=== PATIENT | female | born 1955 | race Caucasian/White ===

== ENCOUNTER 2018-11-28 00:29 | Outpatient (CLI) | payer OTHER, SELFPAY ==
--- NOTE | 2018-11-28 13:14 | DI.MAMMO_ITS ---
SYMPTOMS/DIAGNOSIS: H/O RIGHT-SIDED BREAST CA AND RIGHT MASTECTOMY, SCREENING, Z12.31 MAMMOGRAM: Mammograms were interpreted according to the usual protocol including computer analysis with CAD system, tomosynthesis and C view imaging. The patient is status post right mastectomy. Moderate radiodensity. There is no dominant mass. There are no suspicious calcifications and there has been no significant interval change when compared with the previous images of 01/02/2018. SUMMARY: No evidence of malignancy, category 1. Yearly screening mammography is recommended. Breast density category B. MQSA ASSESSMENT OF FINDINGS: Negative. Category 1. Patient will receive a letter notifying them of these results. BI-RADS category B. There are scattered areas of fibroglandular density.
== END 2018-11-28 00:49 ==
PROVIDERS: PCP Family Medicine; Visit Provider Obstetrics & Gynecology Gynecology
DX: Z12.31 Encounter for screening mammogram for malignant neoplasm of breast (principal); Z85.3 Personal history of malignant neoplasm of breast; Z90.11 Acquired absence of right breast and nipple
CPT/HCPCS: 77063; 77067

== ENCOUNTER 2019-03-05 15:49 | Outpatient (REF) | payer OTHER, SELFPAY ==
[2019-03-05 21:59] LABS: HCT 43.2 % (36.0-46.0); HGB 14.4 g/dL (12.0-15.5); Mean Corp. HGB Concentration 33.3 g/dL (32.0-36.0); Mean Corpuscular Hemoglobin 30.3 pg (27.0-33.0); Mean Corpuscular Volume 90.8 fL (80-95); Mean Platelet Volume 10.8 fL (8.0-11.0); Platelet Count 208 x1000/uL (130-400); RBC 4.76 m/cumm (4.00-5.20); RBC Distribution Width 13.9 % (11.7-14.6); White Blood Cell Count 4.95 k/cumm (4.4-10.8)
[2019-03-05 22:36] LABS: ALT 28 U/L (12-78); AST 21 U/L (15-37); Albumin 3.8 g/dL (3.4-5.0); Alkaline Phosphatase 90 U/L (46-116); Anion Gap 8.2 mmol/L (3-11); BUN 18 mg/dL (7-18); Bilirubin, Total 0.4 mg/dL (0.2-1.0); CO2 28.8 mmol/L (21.0-32.0); CREATININE 0.84 mg/dL (0.55-1.02); Calcium 8.8 mg/dL (8.5-10.1); Chloride 104 mmol/L (98-107); Cholesterol 175 mg/dL (50-200); Glucose 101 mg/dL (70-100); HDL Cholesterol 49 mg/dL (40-60); LDL CHOLESTEROL 112 mg/dL (<100); Sodium 141 mmol/L (136-145); Triglyceride 144 mg/dL (30-150)
== END 2019-03-05 16:09 ==
LOC: NCHCN 15:49
PROVIDERS: PCP Family Medicine; Visit Provider Family Medicine
DX: Z00.00 Encounter for general adult medical examination without abnormal findings (principal); Z13.220 Encounter for screening for lipoid disorders; Z13.0 Encounter for screening for diseases of the blood and blood-forming organs and certain disorders involving the immune mechanism; Z13.228 Encounter for screening for other metabolic disorders
CPT/HCPCS: 80053; 80061; 83721; 85027

== ENCOUNTER 2019-09-05 07:52 | Day surgery (SDC) | payer OTHER, SELFPAY ==
[2019-09-05 08:19] VITALS: BP 109/66; PULSE 59; RESP 16; TEMP 36.4; O2SAT 98
--- NOTE | 2019-09-05 09:13 | PDOC.DSDIS_ITS ---
Discharge Plan Disposition Patient Disposition: HOME Condition: Good Discharge Details Reason For Visit: Colonoscopy Attending Provider: Veronica Zhou Primary Care Provider: Renetta Gale Home Meds and New Rx's Prescriptions: Continued zinc acetate 25 mg (zinc) capsule 25 mg PO DAILY PRNRF: 0 magnesium oxide 400 mg magnesium capsule 400 mg PO DAILY RF: 0 fish oil-dha-epa 1 EACH capsule 1 ea PO DAILY RF: 0 calcium phosphate-vitamin D3 [Citracal + D3 (calcium phos)] 250 mg calcium- 500 unit Tablet,Chewable 1 tab PO DAILY RF: 0 Discontinued polyethylene glycol 3350 17 gram/dose powder 238 g PO ONCE Qty: 238 RF: 0 bisacodyl [Dulcolax (bisacodyl)] 5 mg tablet,delayed release (DR/EC) 5 mg PO ONCE Qty: 4 RF: 0 Discharge Instructions Additional Instructions: Findings: Your colonoscopy was normal. Follow up: Plan for routine screening in 10 years or sooner if symptoms occur. Please call if you develop: fevers >101.5 Nausea or Vomiting Abdominal pain that is not transient DAY SURGERY UNIT POST COLONOSCOPY INSTRUCTIONS 1. Because there will be medication in your system for the next 24 hours, you may feel a little sleepy. Your coordination will be affected. Therefore: a. Do not drive or operate dangerous equipment for 24 hours. b. Do not drink alcohol beverages for 24 hours (not even beer). c. Plan to go home and rest for the day. 2. Generally there are no restrictions on your activity after a day or so has gone by, but you may feel a bit fatigued for a few days. 3 After you arrive home you may have a light meal and return to a normal diet as you can tolerate it without feeling sick to your stomach. 4. After surgery, you may feel pain or discomfort. This should be only transien t, but if it persists please contact your doctor. 5. If there are any questions regarding the findings of your procedure, please feel free to contact your doctor. 6. If you are unable to contact your doctor with a problem, contact the hospital at [phone]. 7. Continue all your regular medications unless directed otherwise. I understand the above instructions and have no questions. Signature of Patient or Responsible Adult Escort Date/Time Name of Responsible Adult Escort Signature of Nurse Date/Time Activity:: Activity as Tolerated Diet:: As Tolerated Discharge Orders Discharge Orders: Discharge Order (Routine); Ordered 09/05/19 Ordered By: Veronica Zhou DS: Diagnosis Discharge Diagnosis (1) Normal colonoscopy: Status: Acute
[2019-09-05] MEDS: Lactated Ringers 1,000 ML 80 ML IV (09:23)
--- NOTE | 2019-09-05 10:17 | COLE_ITS ---
DATE OF PROCEDURE: September 05, 2019 PREOPERATIVE DIAGNOSIS: Screening. POSTOPERATIVE DIAGNOSIS: Normal colon. PROCEDURE: Colonoscopy. SURGEON: Veronica Zhou M.D. ANESTHESIA: General. INDICATIONS: This is a 63-year-old woman whose last colonoscopy was over ten years ago. She is asym ptomatic and has no family history of colon cancer. PROCEDURE: She was placed in the left Fine position. Propofol was titrated to sedation. Digital re ctal examination revealed no abnormalities. The scope was advanced to the cecum without difficulty. Her prep was excellent. The ileocecal valve and appendiceal orifice were clearly identified. The s cope was slowly withdrawn with no abnormalities seen within the ascending, transverse, descending, si gmoid colon or rectum, including on retroflex view. She tolerated the procedure well and was stable to recovery. She will need a follow-up screening again in ten years or sooner if symptoms indicate. cc: Renetta Gale M.D.
[2019-09-05 10:27] VITALS: BP 113/69; PULSE 68; RESP 16; TEMP 36.4; O2SAT 99
== END 2019-09-05 11:40 | disposition home or self-care (01) ==
PROVIDERS: PCP Family Medicine; Visit Provider Surgery
PROC: 0DJD8ZZ Inspection of Lower Intestinal Tract, Via Natural or Artificial Opening Endoscopic (ICD-10-PCS; CPT 45378; principal; 2019-09-05 09:30)
DX: Z12.11 Encounter for screening for malignant neoplasm of colon (principal)
CPT/HCPCS: 45378

== ENCOUNTER 2020-01-13 00:17 | Outpatient (CLI) | payer OTHER, SELFPAY ==
--- NOTE | 2020-01-13 13:45 | DI.MAMMO_ITS ---
EXAM: MG MAMMO SCREENING 60 MIN DUR CLINICAL HISTORY: H/O BREAST CA, Z85.3, S/P RT MASTECTOMY, SCREENING OF LT SIDE, Z12.31 TECHNIQUE: Bilateral full field digital CC and MLO mammographic images were obtained with 3D tomosyn thesis and utilizing computer aided detection (CAD). COMPARISON: Available for comparison. FINDINGS: Masses/Architectural Distortion: The patient is status post right mastectomy. No suspicious masses a re present in the left breast. Microcalcifications: No suspicious pleomorphic-type are seen. Skin Thickening/Nipple Retraction: None. IMPRESSION: 1. No significant interval change with no specific features of malignancy noted. 2. Unless there is more urgent need, screening mammography is recommended, as per [place] [employer] guidelines. BI-RADS Cat 1 - Negative Breast Density - Category B - Scattered areas of fibroglandular density The findings were discussed with the patient on the date of the examination. A negative radiographic report should not delay biopsy if a dominant or clinically suspicious mass is present. Up to ten percent of cancers are not identified on mammography. A negative report may reinforce clinical impression. Adenosis and dense breasts may obscure an underlying neoplasm. False positive reports average 6 to 10%. Patient will receive a letter notifying them of these results.
== END 2020-01-13 00:37 ==
PROVIDERS: PCP Family Medicine; Visit Provider Family Medicine
DX: Z12.31 Encounter for screening mammogram for malignant neoplasm of breast (principal); Z85.3 Personal history of malignant neoplasm of breast; Z90.11 Acquired absence of right breast and nipple
CPT/HCPCS: 77063; 77067

== ENCOUNTER 2021-01-11 02:07 | Outpatient (CLI) | payer OTHER, SELFPAY ==
--- NOTE | 2021-01-11 13:53 | DI.MAMMO_ITS ---
EXAM: MG MAMMO SCREENING 60 MIN DUR CLINICAL HISTORY: breast cancer screening, Z85.3-personal h/o malignant neoplasm of breast TECHNIQUE: Left full field digital CC and MLO mammographic images were obtained with 3D tomosynthesi s and utilizing computer aided detection (CAD). COMPARISON: Available for comparison. FINDINGS: The patient is status post right mastectomy. Masses/Architectural Distortion: None seen. Microcalcifications: No suspicious pleomorphic-type are seen. Skin Thickening/Nipple Retraction: None. IMPRESSION: 1. No significant interval change with no specific features of malignancy noted. 2. Unless there is more urgent need, screening mammography is recommended, as per [place] [employer] guidelines. BI-RADS Category 1 - Negative Breast Density - Category B - Scattered areas of fibroglandular density Breast density category C or D implies that the patient has dense breast tissue. Dense breast tissue is very common and is not abnormal but dense breast tissue can make it harder to find cancer on a ma mmogram. Also, dense breast tissue may increase their breast cancer risk. This information about the result of the mammogram report was provided to the patient to raise their awareness. Use this report when you speak with the patient about their risks for breast cancer, which includes their family hist ory. At that time, you may recommend for more screening tests (Ultrasound or MRI) as they might be us eful based on their risk. A negative radiographic report should not delay biopsy if a dominant or clinically suspicious mass is present. Up to ten percent of cancers are not identified on mammography. A negative report may reinforce clinical impression. Adenosis and dense breasts may obscure an underlying neoplasm. False positive reports average 6 to 10%. Patient will receive a letter notifying them of these results.
== END 2021-01-11 02:27 ==
PROVIDERS: PCP Family Medicine; Visit Provider Obstetrics & Gynecology Gynecology
DX: Z12.31 Encounter for screening mammogram for malignant neoplasm of breast (principal); Z85.3 Personal history of malignant neoplasm of breast
CPT/HCPCS: 77063; 77067

== ENCOUNTER 2021-03-31 01:51 | Outpatient (CLI) | payer OTHER, SELFPAY ==
--- NOTE | 2021-03-31 08:15 | DI.DEXA_ITS ---
Exam(s) XR DEXA BONE DENSITY W/WO MARA EXAM: XR DEXA BONE DENSITY W/WO MARA CLINICAL HISTORY: screening FOR OSTEOPOROSIS, H/O OSTEOPENIA, Z87.39,M85.88 TECHNIQUE: Attracta C densitometer COMPARISON: 06 October 2009 FINDINGS: Lateral view of the thoracic and lumbar spine shows no evidence of compression fractures. Bone mineral density measurements of the lumbar spine correspond to a total T-score of -2.3, in the osteopenic range. This represents a 5.6 percent decrease when compared with 2008. Bone mineral density measurements of the left hip correspond to a total T-score of -1.8 . The femora l neck T-score is -1.8, consistent with osteopenia. This represents a 10.1 percent decrease in hip bone density since 2008.. The left forearm bone mineral density measurements correspond to a T-score of the distal 3rd of -2.0 , consistent with osteopenia. This is a 6.6 percent decrease since 2008. IMPRESSION: Osteopenia of the lumbar spine, left hip and left forearm with decrease in bone density when compared with 2008.
== END 2021-03-31 02:11 ==
PROVIDERS: PCP Family Medicine; Visit Provider Obstetrics & Gynecology Gynecology
DX: M85.88 Other specified disorders of bone density and structure, other site (principal)
CPT/HCPCS: 77080

== ENCOUNTER 2021-05-05 04:27 | Outpatient (CLI) | payer OTHER, SELFPAY ==
[2021-05-12 12:53] LABS: 1,25-Dihydroxyvitamin D 43 pg/mL (18-78)
== END 2021-05-05 04:28 | disposition home or self-care (01) ==
LOC: LBO 04:27
PROVIDERS: PCP Family Medicine; Visit Provider Obstetrics & Gynecology Gynecology
DX: M85.88 Other specified disorders of bone density and structure, other site (principal)
CPT/HCPCS: 36415; 82652

== ENCOUNTER 2022-02-23 01:45 | Outpatient (CLI) | payer MEDICARE, SELFPAY ==
--- NOTE | 2022-02-23 07:45 | DI.MAMMO_ITS ---
Exam(s) MG MAMMO SCREENING 60 MIN DUR EXAM: MG MAMMO SCREENING 60 MIN DUR CLINICAL HISTORY: breast cancer screening,personal h/o breast ca,z85.3. TECHNIQUE: Unilateral LEFT full field digital CC and MLO mammographic images were obtained with 3D t omosynthesis and utilizing computer aided detection (CAD). COMPARISON: Prior mammograms were reviewed, the most recent being January 2021. Patient underwent right mastectomy in 2005. FINDINGS: There has been no significant change in the appearance and distribution of the fibroglandular tissue in the left breast There are no new spiculated masses nor malignant appearing microcalcification groups. There is no significant architectural distortion nor skin thickening-retraction. IMPRESSION: No radiographic evidence of malignancy in the left breast. BI-RADS Category 1 - Negative Breast Density - Category C - Heterogeneously dense Breast density Category C or D implies that the patient has dense breast tissue. Dense breast tissue can make it harder to find cancer on a mammogram. Dense breast tissue is also associated with an incr eased risk of breast cancer. This information about the result of the mammogram report was provided to the patient to raise their awareness. Use this report when you speak with the patient about their risks for breast cancer, which includes their family history. At that time, you may recommend additional screening tests (Ultrasoun d or MRI) as these tests may add significant information. A negative radiographic report should not delay biopsy if a dominant or clinically suspicious mass is present. Up to ten percent of cancers are not identified on mammography. A negative report may reinforce clinical impression. Adenosis and dense breasts may obscure an underlying neoplasm. False positive reports average 6 to 10%. Patient will receive a letter notifying them of these results.
== END 2022-02-23 02:05 ==
PROVIDERS: PCP Family Medicine; Visit Provider Obstetrics & Gynecology Gynecology
DX: Z12.31 Encounter for screening mammogram for malignant neoplasm of breast (principal); Z85.3 Personal history of malignant neoplasm of breast; Z90.11 Acquired absence of right breast and nipple
CPT/HCPCS: 77063; 77067

== ENCOUNTER → 2022-08-01 01:54 | Outpatient (CLI) | payer MEDICARE, SELFPAY ==
--- NOTE | 2022-08-01 07:45 | DI.US_ITS ---
Exam(s) US SOFT TISS ABD WALL/LOW BACK EXAM: US SOFT TISS ABD WALL/LOW BACK CLINICAL HISTORY: RLQ painless spasm of abdominal wall,m62.838. TECHNIQUE: Ultrasound was performed using standard protocol. COMPARISON: No exams were available for comparison FINDINGS: Sonographic assessment utilizing grayscale and color Doppler imaging was performed and targeted to th e area of clinical concern. The right lower quadrant abdominal wall was sonographically evaluated. No cystic or solid masses are seen sonographically. IMPRESSION: Unremarkable ultrasound examination. DATA REPOSITORY:
== END ==
PROVIDERS: PCP Family Medicine; Visit Provider Obstetrics & Gynecology Gynecology
DX: M62.838 Other muscle spasm (principal)
CPT/HCPCS: 76705

== ENCOUNTER → 2022-12-29 08:12 | Outpatient (BNVA) | payer MEDICARE, SELFPAY | PROVIDERS: PCP Family Medicine; Referring Provider Family Medicine; Visit Provider Student in an Organized Health Care Education/Training Program | DX: M65.311 Trigger thumb, right thumb | CPT/HCPCS: 99202 ==

== ENCOUNTER 2023-03-05 03:36 | Outpatient (CLI) | payer MEDICARE, SELFPAY ==
--- NOTE | 2023-03-05 06:45 | DI.MAMMO_ITS ---
Exam(s) US BREAST LT LIMITED MG MAMMO SCREENING 60 MIN DUR EXAM: MG MAMMO SCREENING 60 MIN DUR and U/S breast LT limited CLINICAL HISTORY: breast cancer screening,H/O RT BREAST CA AND MASTECTOMY WITH RECONSTRUCTION. TECHNIQUE: Craniocaudal and mediolateral oblique Full Field Digital Mammography views with Computer Aided Diagnosis followed by Tomosynthesis and left breast ultrasound. COMPARISON: Comparison is made with prior examinations. FINDINGS: Mammography/Tomosynthesis: The patient is status post right mastectomy. Masses/Architectural Distortion: There is a question of a nodule in the outer left breast 4 cm from t he nipple. It is less prominent on the additional views. Microcalcifictions: No suspicious pleomorphic-type are seen. Skin Thickening/Nipple Retraction: None. Limited left breast US: Echotexture: Normal appearance of the glandular tissue. Shadowing: No suspicious foci. Cyst: Cysts are seen in the left breast. There is a 3.7 x 2.3 x 2.3 mm cyst at the 12 o'clock positi on 2 cm from the nipple. There is a 5 x 4 x 3 mm cyst at the 2 o'clock position 4 cm from the nipple . There is a 3 x 3.5 x 3.9 mm cyst at the 5 o'clock position 1 cm from the nipple. Solid lesions: None seen. Ductal dilation: None. IMPRESSION: 1. No evidence of malignancy is noted. 2. Unless there is more urgent need, follow-up screening mammography is recommended, as per [place] [employer] guidelines. 3. The findings were discussed with the patient on the date of the examination. BI-RADS Category 2 - Benign Findings Breast Density - Category B - Scattered areas of fibroglandular density Breast density Category C or D implies that the patient has dense breast tissue. Dense breast tissue can make it harder to find cancer on a mammogram. Dense breast tissue is also associated with an incr eased risk of breast cancer. This information about the result of the mammogram report was provided to the patient to raise their awareness. Use this report when you speak with the patient about their risks for breast cancer, which includes their family history. At that time, you may recommend additional screening tests (Ultrasoun d or MRI) as these tests may add significant information. A negative radiographic report should not delay biopsy if a dominant or clinically suspicious mass is present. Up to ten percent of cancers are not identified on mammography. A negative report may reinforce clinical impression. Adenosis and dense breasts may obscure an underlying neoplasm. False positive reports average 6 to 10%. Patient will receive a letter notifying them of these results.
== END 2023-03-05 03:56 ==
PROVIDERS: PCP Family Medicine; Visit Provider Obstetrics & Gynecology Gynecology
DX: Z85.3 Personal history of malignant neoplasm of breast (principal); R92.8 Other abnormal and inconclusive findings on diagnostic imaging of breast
CPT/HCPCS: 76642; 77063; 77067

== ENCOUNTER 2024-01-03 18:03 | Outpatient (CLI) | payer MEDICARE, SELFPAY ==
[2024-01-03 14:55] LABS: Calculated LDL 143 mg/dL (<100); Cholesterol 220 mg/dL (<200); HDL Cholesterol 56 mg/dL (40-60); Triglyceride 105 mg/dL (<150)
== END 2024-01-03 18:04 | disposition home or self-care (01) ==
LOC: LBO 18:04
PROVIDERS: PCP Family Medicine; Visit Provider Obstetrics & Gynecology Gynecology
DX: E78.00 Pure hypercholesterolemia, unspecified (principal)
CPT/HCPCS: 36415; 80061

== ENCOUNTER → 2024-03-06 03:54 | Outpatient (CLI) | payer MEDICARE, SELFPAY ==
--- NOTE | 2024-03-06 08:30 | DI.MAMMO_ITS ---
Exam(s) MG MAMMO SCREENING 60 MIN DUR EXAM: MG MAMMO SCREENING 60 MIN DUR CLINICAL HISTORY: breast cancer screening, mastectomy, malignant neoplasm breast TECHNIQUE: Left cc and MLO mammogram images were performed according [facility] the [facility] with CAD system, tomosynthesis and C-view imaging. COMPARISON: 2014 through 2022 FINDINGS: Status post right mastectomy. The left breast is composed of scattered fibroglandular densities, Breast Density category B. No suspicious masses or suspicious microcalcifications are seen. Stable appearance of lymph node i n the upper outer quadrant. No skin thickening or abnormal axillary lymph nodes are seen. There has been no change from prior exams. IMPRESSION: BI-RADS Category 1, Negative mammogram Yearly screening mammography is recommended. Breast Density - Category C - Heterogeneously dense A negative radiographic report should not delay biopsy if a dominant or clinically suspicious mass is present. Up to ten percent of cancers are not identified on mammography. A negative report may reinforce clinical impression. Adenosis and dense breasts may obscure an underlying neoplasm. False positive reports average 6 to 10%. Patient will receive a letter notifying them of these results.
== END ==
PROVIDERS: PCP Family Medicine; Visit Provider Obstetrics & Gynecology Gynecology
DX: Z12.31 Encounter for screening mammogram for malignant neoplasm of breast (principal); Z85.3 Personal history of malignant neoplasm of breast; Z90.11 Acquired absence of right breast and nipple
CPT/HCPCS: 77063; 77067

== ENCOUNTER 2024-09-10 14:40 | Outpatient (CLI) | payer MEDICARE, SELFPAY ==
[2024-09-10 15:40] LABS: Calculated LDL 127 mg/dL (<100); Cholesterol 196 mg/dL (<200); Glucose 122 mg/dL (74-106); HDL Cholesterol 58 mg/dL (40-60); Triglyceride 58 mg/dL (<150)
== END 2024-09-10 14:41 | disposition home or self-care (01) ==
LOC: LBO 14:47
PROVIDERS: PCP Family Medicine; Visit Provider Obstetrics & Gynecology Gynecology
DX: Z00.00 Encounter for general adult medical examination without abnormal findings (principal)
CPT/HCPCS: 36415; 80061; 82947

== ENCOUNTER 2025-03-12 00:47 | Outpatient (CLI) | payer MEDICARE, SELFPAY ==
--- NOTE | 2025-03-12 07:45 | DI.MAMMO_ITS ---
Exam(s) MG MAMMO SCREENING 60 MIN DUR EXAM: MG MAMMO SCREENING 60 MIN DUR CLINICAL HISTORY: breast cancer screening,h/o breast ca,z17.0. TECHNIQUE: Bilateral full field digital CC and MLO mammographic images were obtained with 3D tomosyn thesis and utilizing computer aided detection (CAD). COMPARISON: Prior mammograms were reviewed. Prior ultrasound of 03/05/2023 was also reviewed This patient has had prior right past mastectomy FINDINGS: The fibroglandular tissue pattern left breast is again noted be moderately dense. Benign intramammary lymph node in the upper outer quadrant is unchanged from prior mammograms. There is a stable appearing microcalcification group in the left breast slightly medial of center and located 3.5 cm in from the nipple which remain stable from prior mammograms There are no new spiculated masses nor new malignant appearing microcalcification groups. There is no significant architectural distortion nor skin thickening-retraction. IMPRESSION: Stable benign-appearing findings no radiographic evidence of malignancy in the left breast.. BI-RADS Category 2 - Benign Findings Breast Density - Category C - The breast are heterogeneously dense, which may obscure small masses. Breast density Category C or D implies that the patient has dense breast tissue. Dense breast tissue can make it harder to find cancer on a mammogram. Dense breast tissue is also associated with an incr eased risk of breast cancer. This information about the result of the mammogram report was provided to the patient to raise their awareness. Use this report when you speak with the patient about their risks for breast cancer, which includes their family history. At that time, you may recommend additional screening tests (Ultrasoun d or MRI) as these tests may add significant information. A negative radiographic report should not delay biopsy if a dominant or clinically suspicious mass is present. Up to ten percent of cancers are not identified on mammography. A negative report may reinforce clinical impression. Adenosis and dense breasts may obscure an underlying neoplasm. False positive reports average 6 to 10%. Patient will receive a letter notifying them of these results.
== END 2025-03-12 01:07 ==
LOC: DI 00:47
PROVIDERS: PCP Family Medicine; Visit Provider Obstetrics & Gynecology
DX: C50.911 Malignant neoplasm of unspecified site of right female breast (principal); Z17.0 Estrogen receptor positive status [ER+]; R92.333 Mammographic heterogeneous density, bilateral breasts; D24.2 Benign neoplasm of left breast; Z12.31 Encounter for screening mammogram for malignant neoplasm of breast
CPT/HCPCS: 77063; 77067